=== PATIENT | male | born 1990 | race Caucasian/White ===

== ENCOUNTER 2017-05-12 11:44 | Emergency (ER) | payer MEDICAID, OTHER ==
[2017-05-12] MEDS ORDERED: Sodium Chloride 0.9% 1,000 ML IV STA (12:07)
--- NOTE | 2017-05-12 12:14 | ED PDOC ---
Arrival/HPI - General Chief Complaint: Abdominal Pain Time Seen by Provider: 05/12/17 12:07 Historian: Patient - History of Present Illness Narrative History of Present Illness (Text): 05/12/17 12:12 27yo male with no PMhx who present with complaint of diffuse crampy abdominal pain. States he started having abdominal discomfort and bloated after eating out at 0300am this morning. Started having abdominal pain at 0500am. Notes that he tried to vomiting by retching, but couldn't. He states that he took unknown pain medication withouit relieve. Denies nausea, vomiting, diarrhea, constipation, fever, chills, hemetochezia, melena, urinary symptoms, any other complaint. Past Medical History - Provider Review Nursing Documentation Reviewed: Yes - Psychiatric Hx Substance Use: No Family/Social History - Physician Review Nursing Documentation Reviewed: Yes Family/Social History: Unknown Family HX Smoking Status: Never Smoked Hx Alcohol Use: No Hx Substance Use: No Allergies/Home Meds Allergies/Adverse Reactions: Allergies No Known Allergies Allergy (Verified 05/12/17 12:07) Review of Systems - Physician Review All systems were reviewed & negative as marked: Yes - Review of Systems Constitutional: Normal Eyes: Normal ENT: Normal Respiratory: Normal Cardiovascular: Normal Gastrointestinal: Abdominal Pain. absent: Constipation, Diarrhea, Nausea, Vomiting, Hematochezia, Hematemesis Genitourinary Male: Normal Musculoskeletal: Normal Skin: Normal Neurological: Normal Endocrine: Normal Hemo/Lymphatic: Normal Psychiatric: Normal Physical Exam Vital Signs Reviewed: Yes Vital Signs Temp Pulse Resp BP Pulse Ox 05/12/17 13:43 63 18 123/63 98 05/12/17 12:47 98.0 F 63 16 119/72 97 Temperature: Afebrile Blood Pressure: Normal Pulse: Regular Respiratory Rate: Normal Appearance: Positive for: Well-Appearing, Non-Toxic, Comfortable Pain Distress: None Mental Status: Positive for: Alert and Oriented X 3 - Systems Exam Head: Present: Atraumatic, Normocephalic Pupils: Present: PERRL Extroacular Muscles: Present: EOMI Conjunctiva: Present: Normal Mouth: Present: Moist Mucous Membranes Neck: Present: Normal Range of Motion Respiratory/Chest: Present: Clear to Auscultation, Good Air Exchange. No: Respiratory Distress, Accessory Muscle Use Cardiovascular: Present: Regular Rate and Rhythm, Normal S1, S2. No: Murmurs Abdomen: Present: Tenderness (diffuse tenderness), Normal Bowel Sounds, Other ( Soft). No: Distention, Peritoneal Signs, Rebound, Guarding, McBurney's Point Tender, Rovsing's Sign Present Back: Present: Normal Inspection Upper Extremity: Present: Normal Inspection. No: Cyanosis, Edema Lower Extremity: Present: Normal Inspection. No: Edema Neurological: Present: GCS=15, CN II-XII Intact, Speech Normal Skin: Present: Warm, Dry, Normal Color. No: Rashes Psychiatric: Present: Alert, Oriented x 3, Normal Insight, Normal Concentration Medical Decision Making ED Course and Treatment: 05/12/17 17:16 On re evaluation pt states his pain resolved. His abdominal exam was benign. Lab was noted with mild leukocytosis. No bands. Pt symptoms likely gastritis. He was DC home with a rx of Pepcid and referred to his PMD. TRT ED for any new or worsening symptoms. - Lab Interpretations Lab Results: 05/12/17 12:20 05/12/17 12:20 Lab Results 05/12/17 12:20: Sodium 138, Potassium 3.7, Chloride 104, Carbon Dioxide 26, Anion Gap 12, BUN 14, Creatinine 0.9, Est GFR ( Amer) > 60, Est GFR (Non- Af Amer) > 60, Random Glucose 105, Calcium 9.6, Total Bilirubin 0.5, AST 26, ALT 40, Alkaline Phosphatase 50, Total Protein 7.0, Albumin 4.2, Globulin 2.8, Albumin/Globulin Ratio 1.5, Lipase 55 05/12/17 12:20: PT 11.1, INR 1.03, APTT 28.9 05/12/17 12:20: WBC 13.1 H, RBC 5.17, Hgb 14.9, Hct 42.2, MCV 81.6, MCH 28.8, MCHC 35.3, RDW 13.5, Plt Count 209, MPV 11.8 H, Gran % 73.8 H, Lymph % (Auto) 21.1 L, [place] % (Auto) 4.2, Eos % (Auto) 0.8 L, Baso % (Auto) 0.1, Gran # 9.68 H , Lymph # 2.8, Cand[place] # 0.6, Eos # 0.1, Baso # 0.01 - Medication Orders Current Medication Orders: Discontinued Medications Famotidine (Pepcid) 20 mg IVP STAT STA Stop: 05/12/17 12:08 Last Admin: 05/12/17 12:22 Dose: 20 mg Sodium Chloride (Sodium Chloride 0.9%) 1,000 mls @ 1,000 mls/hr IV .Q1H STA Stop: 05/12/17 13:06 Last Admin: 05/12/17 12:23 Dose: 1,000 mls/hr Ketorolac Tromethamine (Toradol) 30 mg IVP STAT STA Stop: 05/12/17 12:08 Last Admin: 05/12/17 12:22 Dose: 30 mg Ondansetron HCl (Zofran Inj) 4 mg IVP STAT STA Stop: 05/12/17 12:08 Last Admin: 05/12/17 12:22 Dose: 4 mg Disposition/Present on Arrival - Present on Arrival Any Indicators Present on Arrival: No History of DVT/PE: No History of Uncontrolled Diabetes: No Urinary Catheter: No History of Decub. Ulcer: No History Surgical Site Infection Following: None - Disposition Have Diagnosis and Disposition been Completed?: Yes Diagnosis: Abdominal pain Disposition: HOME/ ROUTINE Disposition Time: 13:45 Patient Plan: Discharge Condition: IMPROVED Discharge Instructions (ExitCare): Abdominal Pain (ED) Additional Instructions: Follow up with your Doctor Return to ED for any new or worsening symptoms Prescriptions: Famotidine [Pepcid] 40 mg PO DAILY #15 tab Referrals: Trudy Gant DO [Primary Care Provider] - Follow up with primary
[2017-05-12 12:26] LABS: ADD MANUAL DIFF? NO
[2017-05-12 12:31] LABS: BASO # 0.01 K/mm3 (0.0-2.0); BASO % 0.1 % (0.0-3.0); EOS # 0.1 (0.0-0.7); EOS % 0.8 % (1.5-5.0); GRAN # 9.68 (1.4-6.5); GRAN % 73.8 % (50.0-68.0); HEMATOCRIT 42.2 % (42.0-52.0); LYMPH # 2.8 (1.2-3.4); LYMPH % 21.1 % (22.0-35.0); MEAN CELL VOLUME 81.6 fL (80.0-105.0); MEAN CORPUSCULAR HEMOGLOBIN 28.8 pg (25.0-35.0); MEAN CORPUSCULAR HGB CONC 35.3 g/dl (31.0-37.0); MEAN PLATELET VOLUME 11.8 fl (7.0-11.0); MONO # 0.6 (0.1-0.6); MONO % 4.2 % (1.0-6.0); PLATELET COUNT 209 10^3/uL (120.0-450.0); RED CELL DISTRIBUTION WIDTH 13.5 % (11.5-14.5); WHITE BLOOD COUNT 13.1 10^3/ul (4.5-11.0)
[2017-05-12 12:39] LABS: ALB/GLOB RATIO 1.5 (1.1-1.8); ALKALINE PHOSPHATASE 50 U/L (38-133); ALT/SGPT 40 U/L (7-56); AST/SGOT 26 U/L (15-59); BILIRUBIN,TOTAL 0.5 mg/dL (0.2-1.3); BLOOD UREA NITROGEN 14 mg/dL (7-21); CALCIUM 9.6 mg/dL (8.4-10.5); CARBON DIOXIDE 26 mmol/L (21-33); CHLORIDE 104 mmol/L (98-107); GFR AFRICAN-AMERICAN > 60; GLUCOSE,RANDOM 105 mg/dL (70-110); LIPASE 55 U/L (23-300); POTASSIUM 3.7 mmol/L (3.6-5.0); SODIUM 138 mmol/L (132-148)
[2017-05-12 12:47] VITALS: PULSE 63; TEMP 98
[2017-05-12 12:52] LABS: INR 1.03 (0.93-1.08); PARTIAL THROMBOPLASTIN TIME 28.9 Seconds (23.7-30.8)
[2017-05-12 13:45] VITALS: BP 123/63; RESP 18; O2SAT 98
== END 2017-05-12 13:54 | disposition home or self-care (01) ==
LOC: ED 11:44
DX: R10.9 Unspecified abdominal pain (principal)
CPT/HCPCS: 80053; 83690; 85025; 85610; 85730; 96361; 96374; 96375; 99284; J1885; J2405; J7040

== ENCOUNTER 2018-11-02 06:11 | Emergency (ER) | payer OTHER ==
[2018-11-02 06:22] VITALS: O2SAT 100
--- NOTE | 2018-11-02 06:26 | ED PDOC ---
Arrival/HPI <Ayan Gramajo Last Filed: 11/02/18 08:43> - History of Present Illness Narrative History of Present Illness (Text): 11/02/18 06:24 pt presents to emergency department complaining of epigastric pain and vomiting since midnight, no fever or chills or chest pain or diarrhea <Preet Kyle Filed: 11/05/18 09:28> - General Chief Complaint: GI Problem Time Seen by Provider: 11/02/18 06:20 Past Medical History - Provider Review Nursing Documentation Reviewed: Yes - Infectious Disease Hx of Infectious Diseases: None - Psychiatric Hx Substance Use: No <Preet Kyle Filed: 11/05/18 09:28> Family/Social History - Physician Review Nursing Documentation Reviewed: Yes Family/Social History: No Known Family HX Smoking Status: Never Smoked Hx Alcohol Use: No Hx Substance Use: No <Preet Kyle Filed: 11/05/18 09:28> Allergies/Home Meds <Ayan Gramajo Last Filed: 11/02/18 08:43> <Preet Kyle Filed: 11/05/18 09:28> Allergies/Adverse Reactions: Allergies No Known Allergies Allergy (Verified 11/02/18 06:17) Home Medications: Home Meds Medication Instructions Recorded Confirmed Omeprazole 40 mg PO DAILY 11/02/18 11/02/18 Review of Systems - Physician Review All systems were reviewed & negative as marked: Yes - Review of Systems Constitutional: Normal Eyes: Normal ENT: Normal Respiratory: Normal Cardiovascular: Normal Gastrointestinal: Abdominal Pain, Vomiting. absent: Diarrhea, Hematochezia, Hematemesis Genitourinary Male: Normal Musculoskeletal: Normal Skin: Normal Neurological: Normal Endocrine: Normal Hemo/Lymphatic: Normal Psychiatric: Normal <Preet Kyle Filed: 11/05/18 09:28> Physical Exam Vital Signs Temp Pulse Resp BP Pulse Ox 11/02/18 06:22 97.8 F 92 H 18 118/76 100 - Systems Exam Abdomen: Present: Tenderness Back: No: CVA Tenderness <Ayan Gramajo Filed: 11/02/18 08:43> Vital Signs Temp Pulse Resp BP Pulse Ox 11/02/18 06:22 97.8 F 92 H 18 118/76 100 Temperature: Afebrile Blood Pressure: Normal Pulse: Regular Respiratory Rate: Normal Appearance: Positive for: Well-Appearing, Non-Toxic, Comfortable Pain Distress: None Mental Status: Positive for: Alert and Oriented X 3 - Systems Exam Head: Present: Atraumatic, Normocephalic Pupils: Present: PERRL Extroacular Muscles: Present: EOMI Conjunctiva: Present: Normal Mouth: Present: Moist Mucous Membranes Neck: Present: Normal Range of Motion Respiratory/Chest: Present: Clear to Auscultation, Good Air Exchange. No: Respiratory Distress, Accessory Muscle Use Cardiovascular: Present: Regular Rate and Rhythm, Normal S1, S2. No: Murmurs Abdomen: Present: Tenderness (epigastric). No: Distention, Peritoneal Signs Back: Present: Normal Inspection Upper Extremity: Present: Normal Inspection. No: Cyanosis, Edema Lower Extremity: Present: Normal Inspection. No: Edema Neurological: Present: GCS=15, CN II-XII Intact, Speech Normal Skin: Present: Warm, Dry, Normal Color. No: Rashes Psychiatric: Present: Alert, Oriented x 3, Normal Insight, Normal Concentration <Preet Kyle - Last Filed: 11/05/18 09:28> Medical Decision Making ED Course and Treatment: 11/02/18 08:41 Reassessed pt in NAD, resting comfortably. ABD non-ttp. No RLQ tenderness, no rebound. Negative psoas and obturator sign. No CP. No testicular pain. No constipation or diarrhea. Likely gastritis, given non-ttp, epigastric and recent florian eating history before pain. Tolerating clears well. I shared findings, largely unremarkable. Pt requesting more maalox before being d/c. Will give maalox and d/c pt home with return indications and followup. pt agreeable to plan. - Lab Interpretations Lab Results: 11/02/18 06:35 11/02/18 06:35 Lab Results 11/02/18 06:35: Sodium 140, Potassium 3.9, Chloride 102, Carbon Dioxide 29, Anion Gap 14, BUN 16, Creatinine 0.9, Est GFR ( Amer) > 60, Est GFR (Non- Af Amer) > 60, Random Glucose 109, Calcium 9.4, Total Bilirubin 0.7, AST 37, ALT 55, Alkaline Phosphatase 55, Total Protein 7.6, Albumin 4.7, Globulin 2.9, Albumin/Globulin Ratio 1.6, Lipase 73 11/02/18 06:35: WBC 12.3 H, RBC 5.76, Hgb 16.2, Hct 46.9, MCV 81.4, MCH 28.1, MCHC 34.5, RDW 14.1, Plt Count 199, MPV 12.4 H, Gran % 70.8 H, Lymph % (Auto) 22.1, Wells % (Auto) 5.9, Eos % (Auto) 1.0 L, Baso % (Auto) 0.2, Gran # 8.71 H, Lymph # (Auto) 2.7, Wells # (Auto) 0.7 H, Eos # (Auto) 0.1, Baso # (Auto) 0.02 - Medication Orders Current Medication Orders: Al Hydrox/Mg Hydrox/Simethicone (Maalox Plus 30 Ml) 30 ml PO STAT STA Stop: 11/02/18 08:41 Sodium Chloride (Sodium Chloride 0.9%) 1,000 mls @ 1,000 mls/hr IV .Q1H LYLY Last Admin: 11/02/18 06:42 Dose: 1,000 mls/hr eMAR Start Stop Document 11/02/18 06:42 AD (Rec: 11/02/18 06:43 AD [employer]) Intravenous Solution Start Date 11/02/18 Start Time 06:43 Discontinued Medications Ondansetron HCl (Zofran Inj) 4 mg IVP STAT STA Stop: 11/02/18 06:26 Last Admin: 11/02/18 06:43 Dose: 4 mg IVP Administration Document 11/02/18 06:43 AD (Rec: 11/02/18 06:43 [facility] Charges for Administration # of IVP Administrations 1 Pantoprazole Sodium (Protonix Inj) 40 mg IVP ONCE STA Stop: 11/02/18 06:26 Last Admin: 11/02/18 06:43 Dose: 40 mg IVP Administration Document 11/02/18 06:43 AD (Rec: 11/02/18 06:[address] [facility]-) Charges for Administration # of IVP Administrations 1 <Ayan Gramajo - Last Filed: 11/02/18 08:43> - Transfer of Care Patient signed out to Dr:: bianca loo and dispo <Preet Kyle - Last Filed: 11/05/18 09:28> Disposition/Present on Arrival - Present on Arrival Any Indicators Present on Arrival: No - Disposition Have Diagnosis and Disposition been Completed?: Yes Disposition Time: 08:45 <Ayan Gramajo - Last Filed: 11/02/18 08:43> - Present on Arrival History of DVT/PE: No History of Uncontrolled Diabetes: No Urinary Catheter: No History of Decub. Ulcer: No History Surgical Site Infection Following: None <Preet Kyle - Last Filed: 11/05/18 09:28> - Disposition Diagnosis: Gastritis Disposition: HOME/ ROUTINE Condition: GOOD Discharge Instructions (ExitCare): Gastritis, Gastritis (DC) Additional Instructions: FRANKIE MERRILL, thank you for letting us take care of you today. Your provider was Ayan Gramajo and you were treated for VOMITING. The emergency medical care you received today was directed at your acute symptoms. If you were prescribed any medication, please fill it and take as directed. It may take several days for your symptoms to resolve. Return to the Emergency Department if your symptoms worsen, do not improve, or if you have any other problems. Please contact your doctor or call one of the physicians/clinics you have been referred to that are listed on the Patient Visit Information form that is in cluded in your discharge packet. Bring any paperwork you were given at discharge with you along with any medications you are taking to your follow up visit. Our treatment cannot replace ongoing medical care by a primary care provider outside of the emergency department. Thank you for allowing the [facility] team to be part of your care today. If you had an X-Ray or CT scan: A Radiologist will review the ED reading if any change in treatment is needed we will contact you. If you had a blood, urine, or wound culture: It will take several days for the results, if any change in treatment is needed we will contact you. If you had an STI test: It will take 48 hours for the results. Please call after 1 week if you have not heard back. Prescriptions: Famotidine [Pepcid] 20 mg PO Q12H PRN 3 Days #6 tab PRN Reason: Pain, Moderate (4-7) [facility] - Follow up with primary [facility] [place] [Outside] - Follow up with primary Preet Cm MD [Staff Provider] - Follow up with primary Forms: [employer] (Trinidadian), [employer] (Samoan)
[2018-11-02] MEDS: Sodium Chloride 0.9% 1,000 ML IV SCH (06:42)
[2018-11-02 06:45] LABS: BASO # 0.02 K/mm3 (0.0-2.0); BASO % 0.2 % (0.0-3.0); EOS # 0.1 (0.0-0.7); GRAN # 8.71 (1.4-6.5); GRAN % 70.8 % (50.0-68.0); HEMOGLOBIN 16.2 g/dL (14.0-18.0); LYMPH # 2.7 (1.2-3.4); LYMPH % 22.1 % (22.0-35.0); MEAN CELL VOLUME 81.4 fl (80.0-105.0); MEAN CORPUSCULAR HEMOGLOBIN 28.1 pg (25.0-35.0); MEAN CORPUSCULAR HGB CONC 34.5 g/dl (31.0-37.0); MEAN PLATELET VOLUME 12.4 fl (7.0-11.0); MONO # 0.7 (0.1-0.6); MONO % 5.9 % (1.0-6.0); RBC 5.76 10^6/uL (3.5-6.1); RED CELL DISTRIBUTION WIDTH 14.1 % (11.5-14.5); WHITE BLOOD COUNT 12.3 10^3/uL (4.5-11.0)
[2018-11-02 06:53] LABS: ALB/GLOB RATIO 1.6 (1.1-1.8); ALBUMIN 4.7 g/dL (3.0-4.8); ALT/SGPT 55 U/L (7-56); AST/SGOT 37 U/L (17-59); BLOOD UREA NITROGEN 16 mg/dL (7-21); CALCIUM 9.4 mg/dL (8.4-10.5); GFR NON-AFRICAN AMERICAN > 60; LIPASE 73 U/L (23-300)
[2018-11-02] MEDS: Alum-Mag Hydrox-Simethicone Susp (30 mL) PO STA (08:54)
[2018-11-02 09:11] VITALS: BP 114/76; PULSE 83; RESP 16; TEMP 97.9
== END 2018-11-02 09:13 | disposition home or self-care (01) ==
LOC: ED 06:11
DX: K29.70 Gastritis, unspecified, without bleeding (principal)
CPT/HCPCS: 80053; 83690; 85025; 96374; 96375; 99283; C9113; J2405; J7030